=== PATIENT | female | born 1990 | race Caucasian/White ===

== ENCOUNTER → 2018-03-01 | Outpatient (CLI) | payer OTHER ==
[~2018-03-01] VITALS: Ht 154.9 cm; Wt 60.0 kg
[~2018-03-01] MED LIST: IRON325 M1 PO; PRENATAL TABLE1 EAC3 PO
[2018-03-01 13:33] VITALS: BP 99/56
== END | disposition home or self-care (01) ==
LOC: IVINF 12:56
DX: Z34.83 Encounter for supervision of other normal pregnancy, third trimester (principal); Z31.82 Encounter for Rh incompatibility status; Z3A.28 28 weeks gestation of pregnancy; Z67.91 Unspecified blood type, Rh negative
CPT/HCPCS: 96372; J2790

== ENCOUNTER 2018-05-27 02:57 | Inpatient (IN) | payer OTHER ==
[~2018-05-27] VITALS: Ht 154.9 cm; Wt 69.1 kg
[2018-05-27] VITALS (27 sets, daily range): BP systolic 99–120; BP diastolic 54–80
[2018-05-27 08:39] LABS: AMPHETAMINE NEGATIVE (500 ng/mL); BARBITURATES NEGATIVE (200 ng/mL); BENZODIAZEPINES NEGATIVE (150 ng/mL); BUPRENORPHINE NEGATIVE (10 ng/mL); COCAINE NEGATIVE (150 ng/mL); METHADONE NEGATIVE (200 ng/mL); METHAMPHETAMINE NEGATIVE (500 ng/mL); OPIATES (MORPHINE) NEGATIVE (100 ng/mL); OXYCODONE NEGATIVE (100 ng/mL); PHENCYCLIDINE NEGATIVE (25 ng/mL); PROPOXYPHENE NEGATIVE (300 ng/mL); THC CANNABINOIDS NEGATIVE (50 ng/mL); TRICYCLIC ANTIDEPRESSANTS NEGATIVE (300 ng/mL)
[2018-05-27 08:53] LABS: BASOPHIL (%) 0.3 % (0-1); EOSINOPHIL (%) 0.1 % (0-5); HEMATOCRIT 41.5 % (36.0-46.0); HEMOGLOBIN 14.5 G/DL (11.9-15.5); IMMATURE GRANULOCYTE (%) 0.7 % (0.0-0.7); LYMPHOCYTE (%) 12.3 % (15-42); LYMPHOCYTE COUNT 1.9 K/uL (1.0-2.8); MCH 32.2 PG (29.0-34.0); MCHC 34.9 G/DL (30.0-36.0); MONOCYTE (%) 3.4 % (3-12); MONOCYTE COUNT 0.5 K/uL (0-0.8); NEUTROPHIL (%) 83.2 % (45-76); NEUTROPHIL COUNT 13.1 K/uL (1.8-6.4); PLATELET COUNT 230 K/uL (156-360); RBC DIS.WIDTH-CV 12.8 % (11.8-14.6); RBC DIS.WIDTH-SD 42.8 % (39-53); RED BLOOD COUNT 4.51 M/uL (3.80-5.20); WHITE BLOOD COUNT 15.7 K/uL (4.1-10.2)
[2018-05-28] VITALS (11 sets, daily range): BP systolic 101–126; BP diastolic 55–68
[2018-05-28] MEDS ORDERED: IBUPROFEN800 MG PO (03:24)
[2018-05-28] MEDS ORDERED: ENDOCET 5-3251 EACH PO (03:24)
[2018-05-29 03:46] VITALS: BP 105/65
[2018-05-29 06:54] LABS: BASOPHIL (%) 0.2 % (0-1); EOSINOPHIL (%) 0.4 % (0-5); EOSINOPHIL COUNT 0.1 K/uL (0-0.3); HEMATOCRIT 29.4 % (36.0-46.0); IMMATURE GRANULOCYTE (%) 0.8 % (0.0-0.7); LYMPHOCYTE (%) 14.9 % (15-42); LYMPHOCYTE COUNT 2.3 K/uL (1.0-2.8); MCH 32.1 PG (29.0-34.0); MCV 94.2 FL (83-99); MONOCYTE (%) 4.4 % (3-12); MONOCYTE COUNT 0.7 K/uL (0-0.8); NEUTROPHIL (%) 79.3 % (45-76); NEUTROPHIL COUNT 12.4 K/uL (1.8-6.4); PLATELET COUNT 197 K/uL (156-360); RBC DIS.WIDTH-CV 13.2 % (11.8-14.6); WHITE BLOOD COUNT 15.6 K/uL (4.1-10.2)
[2018-05-29 06:56] LABS: RED BLOOD COUNT 3.12 M/uL (3.80-5.20)
[2018-05-29 07:40] VITALS: BP 100/54
[2018-05-29 10:56] VITALS: BP 108/65
[2018-05-29 14:39] VITALS: BP 115/64
[2018-05-29 19:39] VITALS: BP 104/57
[2018-05-29 23:08] VITALS: BP 102/54
[2018-05-30 02:09] VITALS: BP 105/57
[2018-05-30 07:57] VITALS: BP 119/73
[2018-05-30 14:51] VITALS: BP 106/62
== END 2018-05-30 17:50 | disposition home or self-care (01) | DRG 765 ==
LOC: LDRP-OP 02:57 → 2WEST 02:58 → LDRP-OP 05-29 12:40 → 2WEST 05-30 17:50 → LDRP-OP 06-22 09:12
PROVIDERS: Midwife; Nurse Practitioner; Obstetrics & Gynecology Obstetrics
PROC: 10D00Z1 Extraction of Products of Conception, Low, Open Approach (ICD-10-PCS; principal; 2018-05-28)
PROC: 3E033VJ Introduction of Other Hormone into Peripheral Vein, Percutaneous Approach (ICD-10-PCS; 2018-05-28)
PROC: 10907ZC Drainage of Amniotic Fluid, Therapeutic from Products of Conception, Via Natural or Artificial Opening (ICD-10-PCS; 2018-05-28)
PROC: 3E0S3BZ Introduction of Anesthetic Agent into Epidural Space, Percutaneous Approach (ICD-10-PCS; 2018-05-28)
PROC: 00HU33Z Insertion of Infusion Device into Spinal Canal, Percutaneous Approach (ICD-10-PCS; 2018-05-28)
DX: O62.0 Primary inadequate contractions (principal); F33.9 Major depressive disorder, recurrent, unspecified; D62 Acute posthemorrhagic anemia; O36.0931 Maternal care for other rhesus isoimmunization, third trimester, fetus 1; O77.0 Labor and delivery complicated by meconium in amniotic fluid; Z37.0 Single live birth; Z3A.40 40 weeks gestation of pregnancy; F41.9 Anxiety disorder, unspecified; O12.04 Gestational edema, complicating childbirth; O63.0 Prolonged first stage (of labor); O48.0 Post-term pregnancy; O61.0 Failed medical induction of labor; O62.1 Secondary uterine inertia; O99.02 Anemia complicating childbirth; O99.344 Other mental disorders complicating childbirth; Z81.1 Family history of alcohol abuse and dependence; Z81.8 Family history of other mental and behavioral disorders; Z82.3 Family history of stroke; Z82.49 Family history of ischemic heart disease and other diseases of the circulatory system; Z83.3 Family history of diabetes mellitus
CPT/HCPCS: 85025; 86850; 86870; 86900; 86901; 86905; 86920; C1755; G0378; J0595; J0690; J1170; J1885; J2175; J2274; J2400; J2405; J2765; J3010; J7120